=== PATIENT | male | born 1995 | race Caucasian/White ===

== ENCOUNTER 2018-06-11 20:45 | Emergency (ER) | payer BC ==
[~2018-06-11] VITALS: Ht 175.3 cm; Wt 63.5 kg
[2018-06-11] MEDS ORDERED: ADDERALL (21:00)
--- NOTE | 2018-06-11 21:13 | NUR ---
Patient discharged to home in stable conditon. Written and verbal after care instructions given. Patient verbalizes understanding of instructions.
[2018-06-11 21:14] VITALS: BP 114/94
== END 2018-06-11 21:21 | disposition home or self-care (01) ==
LOC: ER 20:47
DX: J34.0 Abscess, furuncle and carbuncle of nose (principal)
CPT/HCPCS: A4663

== ENCOUNTER 2019-06-10 20:47 | Emergency (ER) | payer SELFPAY ==
[~2019-06-10 20:47] MED LIST: ADDERALL
--- NOTE | 2019-06-10 20:50 | NUR ---
Patient BIB [facility] with c/o possible ingestion of Adderall x 2 doses. Patient states " I do not want to be here, I want to go home". Patient denies SI/HI/AH/VH. Patient is AAOX4. He walked out of the ER, refused to be seen. Patient left without being seen by ER physician.
== END 2019-06-10 20:57 | disposition left against medical advice (07) ==
LOC: ER 20:47
DX: Z53.21 Procedure and treatment not carried out due to patient leaving prior to being seen by health care provider (principal)